=== PATIENT | female | born 1990 | race American Indian/Alaskan Native ===

== ENCOUNTER 2016-10-06 11:31 | Emergency (ER) | payer SELFPAY ==
[2016-10-06 11:47] VITALS: BP 114/73
--- NOTE | 2016-10-06 13:22 | Emergency Department Report ---
ED Back Pain/Injury HPI - General Chief Complaint: Back Pain/Injury Stated Complaint: BACK PAIN Source: patient Mode of arrival: Ambulatory Limitations: No Limitations - History of Present Illness Initial Comments: 26 year old female presents to ED with chronic lower back pain x2 years. patient is stable, neurologically intact and in no acute distress. patient states she had epidural in 2014 and has intermittent back pain that worsened since yesterday. Patient has normal observed gait and normal bilateral patellar reflexes on exam. patient denies urinary incontinence, fevers, saddle anesthesia , N/V. patient also states she does heavy lifting at work. Complaint: back pain -: Last night Similar Symptoms Previously: Yes Radiation: none Severity: mild Consistency: intermittent Improves With: none Worsens With: none Associated Symptoms: denies other symptoms - Related Data Previous Rx's Medication Instructions Recorded Last Taken Type Ketorolac [Toradol] 10 mg PO Q6H PRN #20 tablet 10/06/16 Unknown Rx methOCARBAMOL [Robaxin TAB] 500 mg PO BID #20 tab 10/06/16 Unknown Rx Allergies Allergy/AdvReac Type Severity Reaction Status Date / Time No Known Allergies Allergy Verified 10/25/13 22:26 ED Review of Systems ROS: Stated complaint: BACK PAIN Other details as noted in HPI Constitutional: denies: chills, fever Eyes: denies: eye pain, eye discharge, vision change ENT: denies: ear pain, throat pain Respiratory: denies: cough, shortness of breath, wheezing Cardiovascular: denies: chest pain, palpitations Endocrine: no symptoms reported Gastrointestinal: denies: abdominal pain, nausea, diarrhea Genitourinary: denies: urgency, dysuria, discharge Musculoskeletal: back pain Skin: denies: rash, lesions Neurological: denies: headache, weakness, paresthesias Psychiatric: denies: anxiety, depression Hematological/Lymphatic: denies: easy bleeding, easy bruising ED Past Medical Hx - Past Medical History Previous Medical History?: No Additional medical history: anemia - Surgical History Past Surgical History?: No - Social History Smoking Status: Never Smoker Substance Use Type: Alcohol - Medications Home Medications: Home Medications Medication Instructions Recorded Confirmed Last Taken Type Ketorolac [Toradol] 10 mg PO Q6H PRN #20 tablet 10/06/16 Unknown Rx methOCARBAMOL [Robaxin TAB] 500 mg PO BID #20 tab 06/20/17 Unknown Rx ED Physical Exam - General Limitations: No Limitations General appearance: alert, in no apparent distress - Head Head exam: Present: atraumatic, normocephalic - Eye Eye exam: Present: normal appearance - ENT ENT exam: Present: mucous membranes moist - Neck Neck exam: Present: normal inspection, full ROM. Absent: tenderness - Respiratory Respiratory exam: Present: normal lung sounds bilaterally. Absent: respiratory distress - Cardiovascular Cardiovascular Exam: Present: regular rate, normal rhythm. Absent: systolic murmur, diastolic murmur, rubs, gallop - GI/Abdominal GI/Abdominal exam: Present: soft, normal bowel sounds. Absent: distended, tenderness - Extremities Exam Extremities exam: Present: normal inspection, full ROM. Absent: tenderness - Back Exam Back exam: Present: normal inspection, paraspinal tenderness (left sided tenderness), other (ROM limited by pain). Absent: vertebral tenderness - Neurological Exam Neurological exam: Present: alert, oriented X3, normal gait, reflexes normal ( normal bilateral patellar reflexes) - Psychiatric Psychiatric exam: Present: normal affect, normal mood - Skin Skin exam: Present: warm, dry, intact, normal color. Absent: rash ED Course Vital Signs 10/06/16 11:43 Temperature 98.1 F Pulse Rate 83 Respiratory 16 Rate Blood Pressure 114/73 O2 Sat by Pulse 100 Oximetry ED Medical Decision Making - Radiology Data Radiology results: report reviewed XR lumbar No bony or articular abnormality lumbar spine. - Medical Decision Making 26 year old female presents to ED with lower back pain. patient has urine negative for UTI, negative preg test and no acute findings on imaging. patient will be discharged with RX for pain and muscle relaxer. patient is stable, neurologically intact and in no acute distress. patient is ambulatory with normal observed gait. Critical care attestation.: If time is entered above; I have spent that time in minutes in the direct care of this critically ill patient, excluding procedure time. ED Disposition Clinical Impression: Chronic lower back pain Qualifiers: Back pain laterality: left Sciatica presence: without sciatica Qualified Code(s ): M54.5 - Low back pain Disposition: TO HOME OR SELFCARE Is pt being admited?: No Does the pt Need Aspirin: No Condition: Stable Instructions: Chronic Back Pain (ED) Prescriptions: Ketorolac [Toradol] 10 mg PO Q6H PRN #20 tablet PRN Reason: Pain methOCARBAMOL [Robaxin TAB] 500 mg PO BID #20 tab Referrals: PRIMARY CARE, [Primary Care Provider] - 3-5 Days Forms: Work/School Release Form(ED)
[2016-10-06 13:58] LABS: Bilirubin,Urine NEG (Negative); Blood,Urine NEG (Negative); Ketones,Urine NEG (Negative); Leukocyte Esterase,Urine MOD (Negative); Nitrite,Urine NEG (Negative); Protein,Urine <15 mg/dL mg/dL (Negative); Urobilinogen,Urine < 2.0 mg/dL (<2.0)
[2016-10-06] MEDS ORDERED: TORADOL IM ONE (14:12)
[2016-10-06] MEDS ORDERED: FLEXERIL PO ONE (14:12)
[2016-10-06] MEDS ORDERED: NORCO 7.5/325 PO ONE (14:12)
--- NOTE | 2016-10-06 14:19 | XRay Report ---
Lumbar spine 3 views: History: Back pain. Findings: Normal height of vertebral bodies and intervertebral disc are normal articular surfaces. No fracture. No soft tissue calcification. Impression No bony or articular abnormality lumbar spine.
== END 2016-10-06 14:45 | disposition home or self-care (01) ==
LOC: ED 11:31
DX: M54.5 Low back pain (principal); G89.29 Other chronic pain
CPT/HCPCS: 72100; 81003; 81025; 96372; 99283; J1885

== ENCOUNTER 2017-01-25 22:54 | Emergency (ER) | payer SELFPAY ==
[2017-01-26] MEDS ORDERED: TYLENOL PO ONE (00:46)
[2017-01-26 01:16] LABS: Bilirubin,Urine NEG (Negative); Blood,Urine NEG (Negative); Ketones,Urine NEG (Negative); Leukocyte Esterase,Urine SM (Negative); Mucus,Urine FEW /HPF; Nitrite,Urine NEG (Negative); Protein,Urine <15 mg/dL mg/dL (Negative); Urobilinogen,Urine < 2.0 mg/dL (<2.0)
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
[2017-01-26] MEDS ORDERED: MORPHINE IM ONE (07:48)
[2017-01-26] MEDS ORDERED: ZOFRAN IM ONE (07:48)
[2017-01-26] MEDS ORDERED: XYLOCAINE 1%/ EPI 1:100,000 INFILTRATI ONE (07:49)
[2017-01-26] MEDS ORDERED: NACL 0.9% IR ONE (07:49)
[2017-01-26] MEDS ORDERED: AUGMENTIN 500 MG PO ONE ×2 (07:51→10:00)
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
[2017-01-26] MEDS ORDERED: MARCAINE 0.5% INFILTRATI ONE (07:59)
[2017-01-26] MEDS ORDERED: ANTIBIOTIC OINT TP ONE (10:00)
[2017-01-26 11:42] VITALS: BP 107/72
[2017-01-26] MEDS ORDERED: TRIPLE ANTIBIOTIC TP ONE ×2 (11:48→11:50)
== END 2017-01-26 12:00 | disposition home or self-care (01) ==
LOC: ED 22:54
DX: S01.412A Laceration without foreign body of left cheek and temporomandibular area, initial encounter (principal); Y04.8XXA Assault by other bodily force, initial encounter; Y93.89 Activity, other specified; Y92.89 Other specified places as the place of occurrence of the external cause; Y99.8 Other external cause status
CPT/HCPCS: 12013; 70450; 70486; 81001; 81025; 96372; 99284; J2270; J2405; A6250

== ENCOUNTER 2017-01-29 12:35 | Emergency (ER) | payer SELFPAY ==
[2017-01-29 15:21] VITALS: BP 115/73
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
== END 2017-01-29 17:27 | disposition home or self-care (01) ==
LOC: ED 12:35
DX: S01.512A Laceration without foreign body of oral cavity, initial encounter (principal); J45.909 Unspecified asthma, uncomplicated; X58.XXXA Exposure to other specified factors, initial encounter; Y93.9 Activity, unspecified; Y92.9 Unspecified place or not applicable; Y99.9 Unspecified external cause status
CPT/HCPCS: 99282

== ENCOUNTER 2017-02-01 12:36 | Emergency (ER) | payer SELFPAY ==
[2017-02-01 12:51] VITALS: BP 109/67
== END 2017-02-01 18:02 | disposition left against medical advice (07) ==
LOC: ED 12:36
DX: Z53.21 Procedure and treatment not carried out due to patient leaving prior to being seen by health care provider (principal)

== ENCOUNTER 2017-02-04 12:29 | Emergency (ER) | payer SELFPAY ==
[2017-02-04 12:48] VITALS: BP 104/65
[2017-02-04] MEDS ORDERED: BOOSTRIX IM ONE (13:56)
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
== END 2017-02-04 14:24 | disposition home or self-care (01) ==
LOC: ED 12:29
DX: Z48.02 Encounter for removal of sutures (principal); Z87.891 Personal history of nicotine dependence; F12.10 Cannabis abuse, uncomplicated
CPT/HCPCS: 90471; 90715; 99282

== ENCOUNTER 2017-05-23 19:11 | Emergency (ER) | payer SELFPAY ==
[2017-05-23 19:22] VITALS: BP 126/82
[2017-05-24] MEDS ORDERED: MOTRIN PO ONE (02:17)
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
== END 2017-05-24 02:24 | disposition left against medical advice (07) ==
LOC: ED 19:11
DX: J11.1 Influenza due to unidentified influenza virus with other respiratory manifestations (principal); Z53.21 Procedure and treatment not carried out due to patient leaving prior to being seen by health care provider

== ENCOUNTER 2018-11-30 00:22 | Emergency (ER) | payer OTHER ==
[2018-11-30 00:43] VITALS: BP 120/72
[2018-11-30] MEDS ORDERED: ASPIRIN PO ONE (00:43)
--- NOTE | 2018-11-30 01:10 | XRay Report ---
CHEST 1 VIEW INDICATION: Chest Pain. COMPARISON: None FINDINGS: Support devices: None. Heart: Within normal limits. Lungs/Pleura: No acute air space or interstitial disease. Additional findings: None. IMPRESSION: 1. No acute findings. Signer Name: Alberto Quiroz MD Signed: 11/30/2018 1:06 AM Workstation Name: [id number]
[2018-11-30 01:55] LABS: Bilirubin,Urine NEG (Negative); Blood,Urine NEG (Negative); Color,Urine Yellow (Yellow); Protein,Urine <15 mg/dL mg/dL (Negative); Urobilinogen,Urine < 2.0 mg/dL (<2.0)
[2018-11-30 01:57] LABS: Basophils # (Auto) 0.1 K/mm3 (0.0-0.1); Basophils % (Auto) 0.8 % (0.0-1.8); Eosinophils # (Auto) 0.2 K/mm3 (0.0-0.4); Eosinophils % (Auto) 3.9 % (0.0-4.3); Hematocrit 35.7 % (30.3-42.9); Hemoglobin 12.4 gm/dl (10.1-14.3); Lymphocytes # (Auto) 2.2 K/mm3 (1.2-5.4); Lymphocytes % (Auto) 36.2 % (13.4-35.0); Mean Corpuscular HGB Conc 35 % (30-34); Mean Corpuscular Volume 86 fl (79-97); Monocytes # (Auto) 0.3 K/mm3 (0.0-0.8); Platelet Count 246 K/mm3 (140-440); Red Blood Count 4.15 M/mm3 (3.65-5.03); Red Cell Distribution Width 15.2 % (13.2-15.2)
[2018-11-30 01:59] LABS: HCG Qualitative,Urine Negative (Negative)
[2018-11-30 02:10] LABS: BUN/Creatinine Ratio 13; Blood Urea Nitrogen 9 mg/dL (7-17); Calcium 9.2 mg/dL (8.4-10.2); Hemolysis Index 2
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
== END 2018-11-30 04:40 | disposition home or self-care (01) ==
LOC: ED 00:22
DX: K21.9 Gastro-esophageal reflux disease without esophagitis (principal); J45.909 Unspecified asthma, uncomplicated; F12.90 Cannabis use, unspecified, uncomplicated; Z79.899 Other long term (current) drug therapy
CPT/HCPCS: 36415; 71045; 80048; 81001; 81025; 84484; 85025; 93005; 93010; 99284